=== PATIENT | male | born 1940 | race Caucasian/White ===

== ENCOUNTER → 2018-01-20 | Outpatient (CLI) | payer OTHER ==
[~2018-01-20] MED LIST: ASPI325EC PO; ASPI81CH PO; BENA10 PO; CALCIUM/VITD PO; CHOL10002 PO; CINNAMON; CLOP75 PO; FOLGARD TABLET1 EACH PO; FURO20 PO; FURO40 PO; GABA300 PO; IBUP400 PO; MAGNESIUM; METF500C PO; METO25ER PO; METO50 PO; METO50ER PO; OMEP10ER PO; POTCHL20ER PO; PRAV20 PO; Prinivil10 MG PO
[2018-01-20 10:56] LABS: BASOPHILS ABSOLUTE AUTO 0.05 K/mm3 (0.00-0.23); BASOPHILS PERCENT AUTO 1 % (0-2); EOSINOPHILS ABSOLUTE AUTO 0.13 K/mm3 (0.00-0.68); EOSINOPHILS PERCENT AUTO 2 % (0-6); Hematocrit 35.6 % (37.0-53.0); Hemoglobin 11.7 g/dL (13.5-17.5); IMMATURE GRAN ABSOLUTE AUTO 0.02 K/mm3 (0.00-0.10); IMMATURE GRAN PERCENT AUTO 0 % (0-1); LYMPHOCYTES ABSOLUTE AUTO 1.06 K/mm3 (0.84-5.20); LYMPHOCYTES PERCENT AUTO 14 % (21-46); MONOCYTES ABSOLUTE AUTO 0.44 K/mm3 (0.16-1.47); MONOCYTES PERCENT AUTO 6 % (4-13); Mean Corpuscular HGB 29.2 pg (26.0-34.0); Mean Corpuscular HGB Conc 32.9 g/dL (31.5-36.5); Mean Corpuscular Volume 89 fL (80-100); Mean Platelet Volume 9.7 fL (9.1-12.4); NEUTROPHILS ABSOLUTE AUTO 5.69 K/mm3 (1.96-9.15); NEUTROPHILS PERCENT AUTO 77 % (41-73); Platelet Count 216 K/mm3 (150-400); RDW Standard Deviation 47.8 fL (35.1-46.3); Red Blood Cell Count 4.01 M/mm3 (4.30-5.90); White Blood Cell Count 7.39 K/mm3 (4.00-11.30)
[2018-01-20 11:13] LABS: Albumin, Blood 3.7 g/dL (3.4-5.0); Bilirubin, Total 0.9 mg/dL (0.1-1.0); Bun/Creatinine Ratio 14.8 (12.0-20.0); Calcium, Blood 8.9 mg/dL (8.5-10.1); Creatinine, Blood 1.62 mg/dL (0.60-1.20); Globulin, Blood 3.8 g/dL (2.2-4.0); Potassium, Blood 4.3 mmol/L (3.5-5.5); Total Protein, Blood 7.5 g/dL (6.4-8.2); Troponin I 0.074 ng/mL (0.000-0.040)
== END | disposition home or self-care (01) ==
LOC: LAB SHORT 10:49 → LAB EV 10:49
PROVIDERS: Physician Assistant
DX: R06.09 Other forms of dyspnea (principal)
CPT/HCPCS: 80053; 83880; 84484; 85025; 85379

== ENCOUNTER 2018-04-24 09:31 | Day surgery (SDC) | payer OTHER ==
[~2018-04-24] VITALS: Ht 180.3 cm; Wt 111.0 kg
[~2018-04-24 09:31] MED LIST changes: -CHOL10002 PO; -METO50ER PO; -Prinivil10 MG PO
[2018-04-24] MEDS ORDERED: METO50ER PO (10:08)
[2018-04-24] MEDS ORDERED: Prinivil10 MG PO (10:09)
[2018-04-24] MEDS ORDERED: CHOL10002 PO (10:10)
--- NOTE | 2018-04-24 12:25 | NUR ---
PT AMBULATES TO RESTROOM WITH STEADY GAIT. REPORTS HAVING INCONTINENT ISSUES SO HE DRESSES HIMSELF WITH NO NEEDED ASSISTANCE. UNMEASURED VOID. PT REPOSITIONED FOR COMFORT INTO RECLINER CHAIR. CONTINUES TO EAT FROM LUNCH TRAY. VSS. WILL CONTINUE TO MONITOR.
--- NOTE | 2018-04-24 14:29 | NUR ---
PT TR BAND REMOVED FROM LEFT WRIST, RED CLOTH DOT DRESSING APPLIED. ARM BOARD APPLIED FOR SUPPORT. PT AND FAMILY VERBALIZED UNDERSTANDING OF D/C INSTRUCTIONS. IV REMOVED FROM LAC WITH CATH INTACT, PRESSURE DRESSING APPLIED. ENCOURAGED TO REMOVE PRESSURE DRESSING IN 15 MINUTES. PT GETS SHOES ON WITH ASSISTANCE. DAUGHTER HERE TO DRIVE HIM HOME. TAKEN OUT TO VEHICLE VIA W/C. NADN AT TIME OF DISPO. ENCOURAGED TO FOLLOW UP WITH PHYSICIAN SCHEDULED.
== END 2018-04-24 14:30 | disposition home or self-care (01) ==
LOC: MHTC 09:31
DX: I25.119 Atherosclerotic heart disease of native coronary artery with unspecified angina pectoris (principal); Z95.1 Presence of aortocoronary bypass graft; F17.220 Nicotine dependence, chewing tobacco, uncomplicated; E11.22 Type 2 diabetes mellitus with diabetic chronic kidney disease; I13.0 Hypertensive heart and chronic kidney disease with heart failure and stage 1 through stage 4 chronic kidney disease, or unspecified chronic kidney disease; N18.9 Chronic kidney disease, unspecified; I50.30 Unspecified diastolic (congestive) heart failure; I27.20 Pulmonary hypertension, unspecified; E78.5 Hyperlipidemia, unspecified; Z95.5 Presence of coronary angioplasty implant and graft; Z79.82 Long term (current) use of aspirin; Z79.899 Other long term (current) drug therapy
CPT/HCPCS: 93455; 99152; 99153; C1769; C1894; J1644; J2250; J3010; J7030; Q9967

== ENCOUNTER → 2019-07-25 | Outpatient (CLI) | payer OTHER ==
[~2019-07-25] MED LIST changes: +CHOL10002 PO; +METO50ER PO; +Prinivil10 MG PO
[2019-07-25 17:30] LABS: BASOPHILS ABSOLUTE AUTO 0.03 K/mm3 (0.00-0.23); BASOPHILS PERCENT AUTO 0 % (0-2); EOSINOPHILS ABSOLUTE AUTO 0.05 K/mm3 (0.00-0.68); EOSINOPHILS PERCENT AUTO 0 % (0-6); Hematocrit 40.2 % (37.0-53.0); Hemoglobin 13.4 g/dL (13.5-17.5); IMMATURE GRAN ABSOLUTE AUTO 0.04 K/mm3 (0.00-0.10); IMMATURE GRAN PERCENT AUTO 0 % (0-1); LYMPHOCYTES PERCENT AUTO 11 % (21-46); MONOCYTES ABSOLUTE AUTO 0.95 K/mm3 (0.16-1.47); MONOCYTES PERCENT AUTO 8 % (4-13); Mean Corpuscular HGB 29.6 pg (26.0-34.0); Mean Corpuscular HGB Conc 33.3 g/dL (31.5-36.5); Mean Corpuscular Volume 89 fL (80-100); Mean Platelet Volume 9.6 fL (9.1-12.4); NEUTROPHILS ABSOLUTE AUTO 9.27 K/mm3 (1.96-9.15); NEUTROPHILS PERCENT AUTO 80 % (41-73); Platelet Count 193 K/mm3 (150-400); RDW Coefficient Variation 14.5 % (11.7-14.2); RDW Standard Deviation 46.7 fL (35.1-46.3); Red Blood Cell Count 4.53 M/mm3 (4.30-5.90); White Blood Cell Count 11.64 K/mm3 (4.00-11.30)
[2019-07-25 17:49] LABS: Albumin, Blood 4.5 g/dL (3.4-5.0); Albumin/Globulin Ratio 0.9 (0.8-1.8); Bilirubin, Total 1.4 mg/dL (0.1-1.0); Bun/Creatinine Ratio 14.4 (12.0-20.0); Calcium, Blood 9.5 mg/dL (8.5-10.1); Creatinine, Blood 1.95 mg/dL (0.60-1.20); Globulin, Blood 5.2 g/dL (2.2-4.0); Potassium, Blood 4.4 mmol/L (3.5-5.5); Thyroid Stimulating Hormone 0.527 uIU/mL (0.360-4.800); Total Protein, Blood 9.7 g/dL (6.4-8.2); Troponin I 0.046 ng/mL (0.000-0.040)
== END | disposition home or self-care (01) ==
LOC: LAB SHORT 17:26 → LAB EV 17:26
PROVIDERS: Physician Assistant Medical
DX: R50.9 Fever, unspecified (principal); R06.00 Dyspnea, unspecified; R53.83 Other fatigue
CPT/HCPCS: 80053; 83880; 84443; 84484; 85025; 85379

== ENCOUNTER → 2020-06-05 | Outpatient (CLI) | payer OTHER, SELFPAY ==
[2020-06-05 14:57] LABS: Albumin, Blood 3.8 g/dL (3.4-5.0); Anion Gap 9 mmol/L (6-16); Blood Urea Nitrogen 67 mg/dL (8-24); Bun/Creatinine Ratio 30.2 (12.0-20.0); CO2, Blood 22 mmol/L (21-32); Calcium, Blood 9.2 mg/dL (8.5-10.1); Chloride, Blood 102 mmol/L (98-108); Creatinine, Blood 2.22 mg/dL (0.60-1.20); Glomerular Filtration Rate 30 (60-); Glucose, Blood 207 mg/dL (70-99); Phosphorus, Blood 5.5 mg/dL (2.5-4.9); Potassium, Blood 4.7 mmol/L (3.5-5.5); Sodium, Blood 133 mmol/L (136-145)
== END | disposition home or self-care (01) ==
LOC: LAB 12:29 → LAB SHORT 12:29
PROVIDERS: Internal Medicine
DX: N18.32 Chronic kidney disease, stage 3b (principal)
CPT/HCPCS: 36415; 80069

== ENCOUNTER 2022-05-27 02:41 | Day surgery (SDC) | payer OTHER | END 2022-05-27 22:49 | disposition home or self-care (01) | LOC: WOUND 02:41 | DX: L89.312 Pressure ulcer of right buttock, stage 2 (principal); I10 Essential (primary) hypertension; E08.8 Diabetes mellitus due to underlying condition with unspecified complications; E08.622 Diabetes mellitus due to underlying condition with other skin ulcer | CPT/HCPCS: G0463 ==

== ENCOUNTER 2022-06-03 01:49 | Day surgery (SDC) | payer OTHER | END 2022-06-03 22:35 | disposition home or self-care (01) | LOC: WOUND 01:49 | DX: E11.622 Type 2 diabetes mellitus with other skin ulcer (principal); L98.499 Non-pressure chronic ulcer of skin of other sites with unspecified severity; I10 Essential (primary) hypertension | CPT/HCPCS: G0463 ==

== ENCOUNTER 2022-06-24 01:08 | Day surgery (SDC) | payer OTHER | END 2022-06-24 22:44 | disposition home or self-care (01) | LOC: WOUND 01:08 | DX: L89.312 Pressure ulcer of right buttock, stage 2 (principal); E11.9 Type 2 diabetes mellitus without complications | CPT/HCPCS: G0463 ==

== ENCOUNTER 2022-07-08 01:40 | Day surgery (SDC) | payer OTHER | END 2022-07-08 22:55 | disposition home or self-care (01) | LOC: WOUND 01:40 | DX: L89.322 Pressure ulcer of left buttock, stage 2 (principal); L89.312 Pressure ulcer of right buttock, stage 2; E11.9 Type 2 diabetes mellitus without complications | CPT/HCPCS: G0463 ==

== ENCOUNTER 2022-07-22 03:55 | Day surgery (SDC) | payer OTHER | END 2022-07-22 22:42 | disposition home or self-care (01) | LOC: WOUND 03:55 | DX: L89.322 Pressure ulcer of left buttock, stage 2 (principal); L89.312 Pressure ulcer of right buttock, stage 2 | CPT/HCPCS: G0463 ==